=== PATIENT | female | born 1985 | race Caucasian/White ===

== ENCOUNTER 2023-12-30 12:02 | Outpatient (CLI) | payer OTHER | END 2023-12-30 13:40 | disposition home or self-care (01) | LOC: NST 12:02 | PROVIDERS: ATTEND Obstetrics & Gynecology | DX: Z34.83 Encounter for supervision of other normal pregnancy, third trimester (principal) ==

== ENCOUNTER 2024-01-14 10:30 | Inpatient (IN) | payer OTHER ==
[~2024-01-14] VITALS: Ht 180.3 cm; Wt 79.4 kg
[2024-01-14 12:54] LABS: ALBUMIN 2.6 gm/dL (3.4-5.0); BILIRUBIN TOTAL 0.61 mg/dL (0.3-1.2); CALCIUM 8.9 mg/dL (8.5-10.1); CREATININE SERUM 0.48 mg/dL (0.55-1.02); GFR 146.34; GLOBULINA 3.7 G/DL (2.4-3.5); POTASSIUM 4.26 mEq/L (3.5-5.1); TOTAL PROTEIN 6.3 gm/dL (6.4-8.2)
[2024-01-14 12:55] LABS: INR < 0.93; PARTIAL THROMBOPLASTIN TIME 25.1 SECONDS (22.0-34.0); PROTHROMBIN TIME 9.7 SECONDS (9.0-11.5)
[2024-01-21] MEDS ORDERED: CITRIC ACID/SODIUM CITRATE 30 ML BLIST.PACK PO ONE (20:34)
[2024-01-21] MEDS ORDERED: CEFAZOLIN SODIUM 1,000 MG VIAL ONE (20:35)
[2024-01-21] MEDS ORDERED: OXYTOCIN 10 UNITS/ML VIAL ONE (20:43)
[2024-01-21] MEDS ORDERED: SYNTHROID150 MCG PO (20:43)
[2024-01-21] MEDS ORDERED: ERYTHROMYCIN BASE 3.5 GM OINT...G. OP ONE (20:43)
[2024-01-21] MEDS ORDERED: PRENATABS RX T1 EACH PO (20:43)
[2024-01-21] MEDS ORDERED: RINGERS SOLUTION,LACTATED 1,000 ML IV SCH (21:00)
[2024-01-21] MEDS ORDERED: CEFAZOLIN SODIUM 1,000 MG VIAL IV SCH (21:00)
[2024-01-21] MEDS ORDERED: CITRIC ACID/SODIUM CITRATE 30 ML BLIST.PACK PO SCH (21:00)
[2024-01-21] MEDS ORDERED: MEPERIDINE HCL/PF 50 MG/ML VIAL IM PRN (22:30)
[2024-01-21] MEDS ORDERED: IBUprofen 400 MG TABLET PO PRN (22:30)
[2024-01-21] MEDS ORDERED: OXYTOCIN 1,000 ML IV SCH (22:30)
[2024-01-22] MEDS ORDERED: OXYTOCIN 10 UNITS/ML VIAL ONE (03:21)
[2024-01-22] MEDS ORDERED: OxyCODONE HCL/APAP UD (PERCOCET) PO PRN (08:15)
[2024-01-22 14:52] LABS: HEMATOCRIT 27.9 % (36.0-45.00); MEAN CELL VOLUME 88.3 fL (80.00-100.00); MEAN CORPUSCULAR HEMOGLOBIN 30.3 pg (27.00-32.0); MEAN CORPUSCULAR HGB CONC 34.3 g/dl (32.0-36.0); PLATELET COUNT 280 K/uL (150-450); RED BLOOD COUNT 3.16 M/uL (4.00-6.00); RED CELL DISTRIBUTION WIDTH 14.2 % (11.5-14.5)
[2024-01-22 14:58] LABS: HEMOGLOBIN 9.6 g/dL (12.0-15.00)
[2024-01-23] MEDS ORDERED: IRON/V.C/V.B12/FOLIC A/VIT. E 1 CAPL CAPLET PO SCH (09:00)
== END 2024-01-24 16:44 | disposition home or self-care (01) | DRG 788 ==
LOC: O/R 01-21 20:22 → OB/GYN 01-21 20:22 → LDR 01-21 20:22 → O/R 01-21 21:22 → OB/GYN 01-21 22:45
PROVIDERS: Obstetrics & Gynecology; ADMIT Obstetrics & Gynecology; ATTEND Obstetrics & Gynecology
PROC: 0DNW0ZZ Release Peritoneum, Open Approach (ICD-10-PCS; 2024-01-21)
PROC: 4A1HXCZ Monitoring of Products of Conception, Cardiac Rate, External Approach (ICD-10-PCS; 2024-01-21)
PROC: 10D00Z1 Extraction of Products of Conception, Low, Open Approach (ICD-10-PCS; principal; 2024-01-21 21:00)
DX: O34.29 Maternal care due to uterine scar from other previous surgery (principal); O99.892 Other specified diseases and conditions complicating childbirth; N73.6 Female pelvic peritoneal adhesions (postinfective); Z37.0 Single live birth; Z3A.37 37 weeks gestation of pregnancy; Z20.822 Contact with and (suspected) exposure to COVID-19